=== PATIENT | female | born 1965 | race Caucasian/White ===

== ENCOUNTER → 2018-05-17 18:40 | Outpatient (CLI) | payer OTHER, SELFPAY ==
--- NOTE | 2018-05-17 18:43 | DI.MRI.S_ITS ---
PROCEDURE: MR HEAD/BRAIN WO CON INDICATIONS: Difficulty speaking and memory trouble TECHNIQUE: Noncontrast axial T1 spin echo, axial T2 fast spin echo, sagittal and axial FLAIR, coronal T2 fast spin echo, axial gradient echo, axial diffusion and ADC through the brain. COMPARISON: None. FINDINGS: Image quality: Excellent. CSF Spaces: Basal cisterns are patent. No extra-axial fluid collections. Ventricles are normal in size and shape. Brain: No intracranial masses or hemorrhage. Mcqueen/white matter interface is normal. Brainstem appears normal. Diffusion-weighted images demonstrate no acute ischemic insult. No chronic ischemic insults. Normal intravascular flow voids are present. Skull and face: Calvarium has normal marrow signal. Orbits appear normal. Sinuses: Sinuses and mastoids are clear. IMPRESSION: Normal appearing brain parenchyma, no sign of prior ischemic injury. No inflammation is found, the study appears normal for age. Dictated by: Guille Pepper M.D. on 05/20/2018 at 8:06 Approved by: Guille Pepper M.D. on 05/20/2018 at 8:07
== END ==
PROVIDERS: Family Provider Internal Medicine; PCP Internal Medicine; Visit Provider Specialist
DX: R41.3 Other amnesia (principal); R47.9 Unspecified speech disturbances
CPT/HCPCS: 70551

== ENCOUNTER 2019-01-01 04:07 | Emergency (ER) | payer OTHER, SELFPAY ==
[2019-01-01 04:19] VITALS: BP 113/59; PULSE 60; RESP 14; TEMP 36.5; O2SAT 95; BMI 23.1
--- NOTE | 2019-01-01 04:29 | ED_ITS ---
HPI - Headache General Chief Complaint: Headache Stated Complaint: jaw pain head pain Time Seen by Provider: 01/01/19 04:11 Source: patient Mode of arrival: ambulatory Limitations: no limitations History of Present Illness HPI Narrative: 53-year-old female nonsmoker with history of headaches presents with her and a chief complaint of gradually worsening generalized headache and bilateral jaw pain. She has been seeing our local headache specialist for over a year and has had extensive imaging and various treatment modalities. She recently has seen chiropractic providers with minimal help. She was sleeping poorly last night and felt some pain in her bilateral jaw and generalized headache. She denies any blurred vision or focal neurologic findings. She states this is gradually worsening and certainly not the worst headache of her life. She denies any recent injury, neck pain nor fever or shaking chills. She did not experience much in the way of relief with Excedrin migraine. Patient states she did not have any caffeine yesterday, and normally drinks a few cups daily MD Complaint: headache and migraine Onset (ago): day(s) Onset description: gradual Location: diffuse Severity: moderate Quality: aching and throbbing Relieving factors: rest Exacerbating factors: light and noise Context: occurred at rest Associated symptoms: nausea Treatments prior to arrival: acetaminophen Related Data Previous Rx's Medication Instructions Recorded verapamil 120 mg 24 hr 120 mg PO DAILY #30 cap 05/08/18 capsule,extended release citalopram 20 mg tablet 20 mg PO QDAY #90 tab 08/28/18 Allergies Allergy/AdvReac Type Severity Reaction Status Date / Time ibuprofen [IBUPROFEN] Allergy Mild hives Verified 08/20/18 09:40 Review of Systems Constitutional Constitutional: Denies chills, Denies fatigue, Denies fever(s), Denies frequent falls, Reports headache(s), Denies lethargy and Denies weakness Eyes Eyes: Denies change in vision, Denies eye discharge, Denies irritation and Denies loss of vision ENT Ears, Nose, Mouth, and Throat: Denies change in voice, Denies dizziness, Reports headache(s), Denies neck pain, Denies sore throat and Denies throat swelling Cardiovascular Cardiovascular: Denies chest pain, Denies irregular heart rhythm, Denies lightheadedness, Denies palpitations, Denies dyspnea, Denies dyspnea on exertion and Denies orthopnea Respiratory Respiratory: Denies cough, Denies dyspnea, Denies dyspnea on exertion and Denies wheezing Gastrointestinal Gastrointestinal: Denies abdominal pain, Denies change in bowel habits, Denies diarrhea, Reports nausea and Denies vomiting Genitourinary Genitourinary: Denies hematuria, Denies flank pain, Denies urinary incontinence and Denies urinary urgency Musculoskeletal Musculoskeletal: Denies back pain, Denies muscle weakness, Denies neck pain, Denies numbness and Denies tingling Integumentary/Breasts Skin/Breast: Denies pruritus, Denies erythema, Denies rash and Denies wounds Neurologic Neurologic: Denies behavioral changes, Denies confusion, Denies dizziness, Denies frequent falls, Reports headache(s), Denies loss of vision, Denies numbness, Denies tingling and Denies weakness Psychiatric Psychiatric: Denies anxiety, Denies behavioral changes, Denies confusion, Denies depression, Denies homicidal ideation and Denies suicidal ideation Endocrine Endocrine: Denies fatigue, Denies flushing and Denies palpitations Hematologic/Lymphatic Hematologic/Lymphatic: Denies easy bruising Allergic/Immunologic Allergic/Immunologic: Denies urticaria, Denies throat swelling and Denies wheezing [facility] Medical History Memory change (Chronic) Surgical History History of surgery (Resolved) History of third molar tooth extraction Social History Smoking Status: Never smoker Social History Smoking Status: Never smoker Exam Narrative Exam Narrative: GENERAL: [53] year old patient appears stated age. Well- nourished, well-developed patient, in mild distress. Sitting upright HEAD: Atraumatic. Normocephalic. EYES: Pupils equal round and reactive. Extraocular motions intact. No scleral icterus. No injection or drainage. ENT: Nose without bleeding, purulent drainage. Throat without erythema, tonsillar hypertrophy or exudate. Airway patent. NECK: Trachea midline. Non tender CARDIOVASCULAR: Regular rate and rhythm without murmurs, gallops, or rubs. RESPIRATORY: Clear to auscultation. Breath sounds equal bilaterally. No wheezes, rales, or rhonchi. GASTROINTESTINAL: Abdomen soft, non-tender, nondistended. EXTREMITIES: No edema or joint tenderness. BACK: Nontender without deformity or crepitance. No flank tenderness. NEURO: AOx3. SKIN: No rash or erythema of visible areas NIH Stroke Scale 1a. LOC: Patient is alert and keenly responsive (0) 1b. LOC Questions: Patient answers both LOC questions accurately (0) 1c. LOC Commands: Patient performs both tasks correctly (0) 2. Best Gaze: Normal (0) 3. Visual: No visual loss (0) 4. Facial palsy: Normal symmetrical movements (0) 5. Motor arm: No drift (0) 6. Motor leg: No drift (0) 7. Limb ataxia: Absent (0) 8. Sensory: Normal (0) 9. Best language: No aphasia; normal (0) 10. Dysarthria: Normal (0) 11. Extinction and inattention: No abnormality (0) NIHSS: 0 Initial Vital Signs Initial Vital Signs: Vital Signs Temperature 97.7 F 01/01/19 04:19 Pulse Rate 60 01/01/19 04:19 Respiratory Rate 14 01/01/19 04:19 Blood Pressure 113/59 L 01/01/19 04:19 Pulse Oximetry 95 01/01/19 04:19 Course Orders Ordered: Discontinued Medications Dexamethasone (Decadron) 10 mg IV NOW ONE Stop: 01/01/19 04:28 Last Admin: 01/01/19 04:42 Dose: 10 mg Documented by: MMCFARL Diphenhydramine HCl (Benadryl) 25 mg IV NOW ONE Stop: 01/01/19 04:28 Last Admin: 01/01/19 04:42 Dose: 25 mg Documented by: MMCFARL Sodium Chloride (Normal Saline 0.9%) 1,000 mls @ 1,000 mls/hr IV BOLUS ONE Stop: 01/01/19 05:26 Last Infusion: 01/01/19 05:28 Dose: 0 mls/hr Documented by: Admin: 01/01/19 04:42 Dose: 1,000 mls/hr Documented by: MMCFARL Metoclopramide HCl (Reglan) 10 mg IV NOW ONE Stop: 01/01/19 04:28 Last Admin: 01/01/19 04:41 Dose: 10 mg Documented by: MMCSARAL Vital Signs Vital signs: Vital Signs - 8 hr 01/01/19 04:19 Temperature 97.7 F Pulse Rate 60 Respiratory Rate 14 Blood Pressure 113/59 L Pulse Oximetry 95 Discharge Plan Departure Patient Disposition: Home Clinical Impression: Chronic migraine without aura, intractable, without status migrainosus Discharge Date/Time: 01/01/19 05:40 Activity Restrictions/Additional Instructions: *You have been diagnosed with [headache, most likely multifactorial including lack of caffeine, temporomandibular joint dysfunction, migraine type versus other] *What to do: *Take medications as directed *Follow up with your primary care provider in 2-3 days, call for an appointment. Let them know you were seen in the Emergency Department and that we ask that you be seen in follow up *Return to ER if you should have any new, worsening or concerning symptoms Prescriptions: No Action citalopram 20 mg tablet 20 mg PO QDAY Qty: 90 RF: 1 verapamil 120 mg capsule,ext rel. pellets 24 hr 120 mg PO DAILY Qty: 30 RF: 11 Referrals: Sherri Branham ARNP [Primary Care Provider] -
[2019-01-01] MEDS: METOCLOPRAMIDE 10 MG/2 ML INJ IV (04:41)
[2019-01-01] MEDS: diphenhydrAMINE 50 MG/ML VIAL 25 MG IV (04:42)
[2019-01-01] MEDS: DEXAMETHASONE 10 MG/ML VIAL IV (04:42)
[2019-01-01] MEDS: SODIUM CHLORIDE 0.9% 1,000 ML 1000 ML IV (04:42)
[2019-01-01 05:03] VITALS: BP 96/79; PULSE 76; O2SAT 100
[2019-01-01 05:42] VITALS: BP 103/63; PULSE 56; RESP 16; O2SAT 99
== END 2019-01-01 05:40 | disposition home or self-care (01) ==
PROVIDERS: Emergency Provider Emergency Medicine; Family Provider Internal Medicine; PCP Internal Medicine
DX: G43.719 Chronic migraine without aura, intractable, without status migrainosus (principal)
CPT/HCPCS: 96361; 96374; 96375; 99283; 99284; J1100; J1200; J2765

== ENCOUNTER → 2020-08-13 08:38 | Outpatient (CLI) | payer BC, SELFPAY ==
[2020-08-13] MEDS: COVID-19 VACC #1, MRNA(MOD) 100 MCG/0.5 ML VIAL IM (08:46)
== END ==
PROVIDERS: Family Provider Internal Medicine; PCP Family Medicine; Visit Provider Internal Medicine
DX: Z23 Encounter for immunization (principal)
CPT/HCPCS: 0011A; 91301

== ENCOUNTER → 2022-01-24 15:56 | Outpatient (CLI) | payer OTHER, SELFPAY ==
[2022-01-24 18:35] LABS: Appearance Urine UA CLEAR; Bilirubin Urine UA NEGATIVE (NEGATIVE); Color Urine UA YELLOW; Glucose Urine UA NEGATIVE (Negative); Ketones Urine UA NEGATIVE (NEGATIVE); Leukocyte Esterase Urine UA TRACE (NEGATIVE); Nitrite Urine UA NEGATIVE (Negative); Occult Blood Urine UA NEGATIVE (Negative); Protein Urine UA NEGATIVE (Negative); Urobilinogen Urine UA 0.2 E.U./dL (0.2)
[2022-01-24 18:43] LABS: RBC Urine None Seen (0-5/HPF); Squamous Epithelial Cell Urine 1-5 /HPF (0-5/HPF); WBC Urine 1-5/HPF (0-5/HPF)
[2022-01-24 18:44] LABS: Bacteria Urine Occasional (0-1); Culture Indicated Urine Specimen Cultured
== END ==
PROVIDERS: Family Provider Internal Medicine; PCP Registered Nurse Diabetes Educator; Referring Provider Registered Nurse Diabetes Educator; Visit Provider Registered Nurse Diabetes Educator
DX: R30.0 Dysuria (principal)
CPT/HCPCS: 81001; 87086

== ENCOUNTER → 2022-02-14 08:03 | Outpatient (CLI) | payer OTHER, SELFPAY ==
[2022-02-14 09:12] LABS: Appearance Urine UA CLEAR; Bilirubin Urine UA NEGATIVE (NEGATIVE); Color Urine UA YELLOW; Glucose Urine UA NEGATIVE (Negative); Ketones Urine UA NEGATIVE (NEGATIVE); Leukocyte Esterase Urine UA 1+ (NEGATIVE); Nitrite Urine UA NEGATIVE (Negative); Occult Blood Urine UA NEGATIVE (Negative); Protein Urine UA NEGATIVE (Negative); Specific Gravity Urine UA <=1.005 (1.000-1.035); Urobilinogen Urine UA 0.2 E.U./dL (0.2)
[2022-02-14 10:12] LABS: pH Urine UA 7.5 (4.5-8.0)
[2022-02-14 10:13] LABS: Bacteria Urine None Seen; Culture Indicated Urine Specimen Cultured; RBC Urine None Seen (0-5/HPF); Squamous Epithelial Cell Urine None Seen (0-5/HPF); WBC Urine 0-1/HPF (0-5/HPF)
== END ==
PROVIDERS: Family Provider Internal Medicine; PCP Registered Nurse Diabetes Educator; Referring Provider Registered Nurse Diabetes Educator; Visit Provider Registered Nurse Diabetes Educator
DX: R39.9 Unspecified symptoms and signs involving the genitourinary system (principal)
CPT/HCPCS: 81001; 87086

== ENCOUNTER → 2022-06-08 10:27 | Outpatient (CLI) | payer OTHER, SELFPAY ==
--- NOTE | 2022-06-08 10:28 | DI.US.S_ITS ---
LIMITED ULTRASOUND OF LEFT BREAST AND AXILLA: 06/08/2022 CLINICAL: LT BREAST MASS 8-9 O'CLOCK. Comparison is made to exams dated: 06/08/2022 mammogram, 01/14/2016 ultrasound, 11/08/2015 ultrasound, 10/26/2015 ultrasound, and 10/26/2015 mammogram - [facility]. Color flow ultrasound of the left breast axilla was performed on the areas of interest. Mcqueen scale images of the real-time examination were reviewed. There is a normal appearing lymph node in the left axillary tail with a fatty hilum. This correlates as palpated. IMPRESSION: BENIGN There is no sonographic evidence of malignancy. The normal lymph node is benign. There is no mammographic or sonographic abnormality seen in the left breast to correspond with the abnormality palpated by the referring clinician, however, clinical followup is recommended. A 1 year screening mammogram is recommended. This exam was interpreted at Station ID: [id number]. Electronically Signed By: Rita chopra/:06/08/2022 15:37:02 letter sent: Clinical Evaluation Ultrasound BI-RADS: 2 Benign
--- NOTE | 2022-06-08 10:28 | DI.MG.S_ITS ---
BILATERAL DIGITAL DIAGNOSTIC MAMMOGRAM 3D/2D: 06/08/2022 CLINICAL: Left breast mass. Comparison is made to exams dated: 10/26/2015 mammogram, 01/14/2016 ultrasound, and 01/14/2016 ultrasound - [facility]. Both breasts are heterogeneously dense, which may obscure small masses (category c / 51-75% glandular tissue). No significant masses, calcifications, or other findings are seen in either breast. IMPRESSION: INCOMPLETE: NEEDS ADDITIONAL IMAGING EVALUATION There is no mammographic abnormality seen in the left breast to correspond with the palpable abnormality, however, targeted ultrasound of the left breast is recommended and will be performed immediately following this exam. Based on the Tyrer Cuzick model (a risk assessment model) the patient's lifetime risk is 10.8% and her 10 year risk is 3.7%. According to the ACR, ACS, and NCCN guidelines, an annual breast MRI exam along with mammogram is recommended if the patient's lifetime risk is 20% or greater. This exam was interpreted at Station ID: [id number]. NOTE: For mammograms, a report in lay terms will be sent to the patient. Approximately 15% of breast malignancies will not be visualized mammographically. In the management of a palpable breast mass, a negative mammogram must not discourage biopsy of a clinically suspicious lesion. Electronically Signed By: Rita Lowery M.D. lk/:06/08/2022 11:05:04 ACR BI-RADS Category 0: Incomplete [id number]
== END ==
PROVIDERS: Family Provider Internal Medicine; PCP Registered Nurse Diabetes Educator; Referring Provider Registered Nurse Diabetes Educator; Visit Provider Registered Nurse Diabetes Educator
DX: N63.20 Unspecified lump in the left breast, unspecified quadrant (principal); R92.2 Inconclusive mammogram
CPT/HCPCS: 76642; 77066; G0279

== ENCOUNTER → 2023-03-03 11:30 | Outpatient (CLI) | payer OTHER, SELFPAY ==
[2023-03-03 12:51] LABS: Hematocrit 38.9 % (36-46); Hemoglobin 13.1 g/dL (12.0-16.0); Mean Corpuscular HGB Conc 33.5 % (30-36); Mean Corpuscular Hemoglobin 30.7 PG (26-34); Mean Corpuscular Volume 91.6 fL (80-100); Platelet Count 203 X10^3/uL (150-400); Red Blood Cell Count 4.25 X10^6/uL (4.0-5.2); White Blood Cell Count 5.6 X10^3/uL (4.5-11.0)
[2023-03-03 13:08] LABS: HEMOLYSIS < 15 (0-50); Iron 68 ug/dL (37-170)
[2023-03-03 13:10] LABS: Alanine Aminotransferase 18 IU/L (<35); Albumin 4.3 g/dL (3.5-5.0); Albumin Globulin Ratio 1.4 (1.0-2.8); Alkaline Phosphatase 62 U/L (38-126); Aspartate Aminotransferase 29 IU/L (14-36); BUN Creatinine Ratio 30.3 (6-22); Bilirubin Total 0.4 mg/dL (0.2-1.3); Blood Urea Nitrogen 20 mg/dL (7-17); Calcium 9.8 mg/dL (8.4-10.2); Carbon Dioxide 28 mmol/L (22-32); Chloride 105 mmol/L (98-107); Cholesterol 177 mg/dL (140-199); Estimated Glomerular Filt Rate > 60 mL/min (>60); Glucose 85 mg/dL (70-100); HDL Cholesterol 64 mg/dL (40-60); HEMOLYSIS < 15 (0-50); LDL Cholesterol Calculated 102 mg/dL (<100); Potassium 4.4 mmol/L (3.4-5.1); Sodium 139 mmol/L (137-145); Total Protein 7.3 g/dL (6.3-8.2); Triglycerides 54 mg/dL (35-150)
[2023-03-03 13:19] LABS: Percent Iron Saturation 18 % (15-50); Total Iron Binding Capacity 382 ug/dL (265-497); Transferrin 283 mg/dL (206-381)
[2023-03-03 13:25] LABS: Free T4, Direct Thyroxine 1.15 ng/dL (0.78-2.19)
[2023-03-03 13:39] LABS: Thyroid Stimulating Hormone 1.73 uIU/mL (0.47-4.68)
[2023-03-03 13:42] LABS: Ferritin 12 ng/mL (11-264)
[2023-03-03 13:57] LABS: Vitamin B12 Reflex MMA if <400 488 pg/mL (239-931)
== END ==
LOC: LAB 11:34
PROVIDERS: Family Provider Internal Medicine; PCP Registered Nurse Diabetes Educator; Referring Provider Registered Nurse Diabetes Educator; Visit Provider Registered Nurse Diabetes Educator
DX: E04.9 Nontoxic goiter, unspecified (principal); R53.83 Other fatigue; D64.9 Anemia, unspecified; Z78.9 Other specified health status
CPT/HCPCS: 36415; 80053; 80061; 82607; 82728; 83540; 83550; 83735; 84439; 84443; 85027

== ENCOUNTER → 2023-03-09 14:27 | Outpatient (CLI) | payer OTHER, SELFPAY ==
--- NOTE | 2023-03-09 14:28 | DI.US.S_ITS ---
PROCEDURE: US THYROID INDICATIONS: THYROID ENLARGEMENT TECHNIQUE: Real-time scanning was performed of the thyroid gland, with image documentation. COMPARISON: None. FINDINGS: Right: Thyroid lobe measures 3.7 x 1.1 x 1.3 cm. Left: Thyroid lobe measures 3.3 x 1.1 x 1.1 cm. Isthmus: 0.3 mm thick. Lymph nodes: No regional lymphadenopathy. IMPRESSION: No thyroid nodules. Thyroid is normal in size and appearance. Dictated by: Giuseppe Adams M.D. on 03/09/2023 at 16:37 Approved by: Giuseppe Adams M.D. on 03/09/2023 at 16:38
== END ==
LOC: US 14:28
PROVIDERS: Family Provider Internal Medicine; PCP Registered Nurse Diabetes Educator; Referring Provider Registered Nurse Diabetes Educator; Visit Provider Registered Nurse Diabetes Educator
DX: E04.9 Nontoxic goiter, unspecified (principal)
CPT/HCPCS: 76536

== ENCOUNTER → 2025-01-08 14:48 | Outpatient (CLI) | payer OTHER, SELFPAY | PROVIDERS: Family Provider Internal Medicine; PCP Registered Nurse Diabetes Educator; Visit Provider Physician Assistant | DX: R39.198 Other difficulties with micturition (principal); R53.83 Other fatigue | CPT/HCPCS: 87086 ==

== ENCOUNTER → 2025-03-08 13:18 | Outpatient (CLI) | payer OTHER, SELFPAY ==
--- NOTE | 2025-03-08 13:20 | DI.RAD.S_ITS ---
PROCEDURE: XR FOOT LT MIN 3V
== END ==
LOC: RAD 13:20
PROVIDERS: Family Provider Internal Medicine; PCP Registered Nurse Diabetes Educator; Referring Provider Registered Nurse Diabetes Educator; Visit Provider Registered Nurse
DX: S92.512A Displaced fracture of proximal phalanx of left lesser toe(s), initial encounter for closed fracture (principal); M79.672 Pain in left foot
CPT/HCPCS: 73630